=== PATIENT | female | born 1980 | race Two or more races ===

== ENCOUNTER 2017-07-02 20:22 | Emergency (ER) | payer BC ==
[2017-07-02] MEDS ORDERED: Acetaminophen TAB* 325 MG PO ONE (21:40)
[2017-07-02] MEDS ORDERED: NS 0.9% 1000 ML*IV.FLUID IV ONE (21:40)
[2017-07-02] MEDS ORDERED: Albuterol 2.5 MG/3 ML NEB.SOL* (0.083%) INH PRN (21:42)
[2017-07-02] MEDS ORDERED: Albuterol/Ipratropium NEB.SOL* Albuterol 2.5 MG/Ipratropium 0.5 MG 3 ML INH ONE (21:42)
[2017-07-02] MEDS ORDERED: Levofloxacin 750 MG IVPREMIX(* 750 MG/150 ML BAG IVPB ONE (21:42)
[2017-07-02 22:34] LABS: EGFR Non-African American 88.3 (>60)
[2017-07-02 22:37] LABS: INR 0.93 (0.77-1.02)
[2017-07-02 22:46] LABS: ABS Basophils 0 10^3/ul (0-0.2); ABS Eosinophils 0.1 10^3/ul (0-0.6); ABS Lymphocytes 2.1 10^3/ul (1.0-4.8); ABS Monocytes 0.4 10^3/ul (0-0.8); ABS Neutrophils 1.9 10^3/ul (1.5-7.7); ABS Nucleated RBC 0 10^3/ul; Hematocrit 40 % (35-47); Hemoglobin 13.7 g/dl (12.0-16.0); Lymphocyte % 46.4 % (25-47); Mean Corpuscular HGB Conc 34 g/dl (31-36); Mean Corpuscular Hemoglobin 33 pg (27-31); Mean Corpuscular Volume 96 fL (80-97); Mean Platelet Volume 7 um3 (7.4-10.4); Nucleated Red Blood Cells % 0; Platelet Count 92 10^3/ul (150-450); Red Blood Count 4.18 10^6/ul (4.0-5.4); Red Cell Distribution Width 14 % (10.5-15); White Blood Count 4.5 10^3/ul (3.5-10.8)
[2017-07-02] MEDS ORDERED: Ibuprofen TAB* 800 MG PO PRN (23:16)
--- NOTE | 2017-07-02 23:18 | ED ---
Niesha Kearney Rebecca, scribed for Omid Overton MD on 07/02/17 at 2258 . Shortness of Breath - HPI Summary HPI Summary: Pt is a 36 y/o F who presents to ED c/o wheezing and SOB for 2 days, gradually worsening since onset. Pt initially attributed sx to being around cats. Sx aggravated by nothing, alleviated by Albuterol and unchanged by Benadryl. Sx have improved since arriving in the ED. Additionally c/o myalgias and fatigue, beginning this morning, stating that she slept all afternoon. Notes rhinorrhea and cough. 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 No PMHx asthma. - History of Current Complaint Chief Complaint: EDShortnessOfBreath Time Seen by Provider: 07/02/17 21:43 Hx Obtained From: Patient Onset/Duration: Lasting Days - 2 days, Still Present Current Severity: Moderate - 5/10 Dyspnea At: Rest Aggrevating Factors: Nothing Alleviating Factors: Bronchodilators - Albuterol Associated Signs & Symptoms: Cough (Nonproductive), Wheezing - Allergy/Home Medications Allergies/Adverse Reactions: Allergies Allergy/AdvReac Type Severity Reaction Status Date / Time Chlorhexidine Allergy Rash And Verified 07/02/17 21:56 Itching Vancomycin Allergy See Comment Verified 07/02/17 21:56 PMH/Surg Hx/FS Hx/Imm Hx Endocrine/Hematology History: Reports: Other Endocrine/Hematological Disorders - Prediabetic Respiratory History: Denies: Hx Asthma - Cancer History Cancer Type, Location and Year: Leukemia - in remission since November 2016 Infectious Disease History: No Infectious Disease History: Denies: Traveled Outside the [place] in Last 30 Days - Family History Known Family History: Positive: Hypertension, Diabetes - Social History Alcohol Use: None Substance Use Type: Reports: None Smoking Status (MU): Never Smoked Tobacco Review of Systems Positive: Fatigue Positive: Nasal Discharge Positive: Shortness Of Breath, Cough, Other - Wheezing Positive: Myalgia All Other Systems Reviewed And Are Negative: Yes Physical Exam - Summary Physical Exam Summary: VITAL SIGNS: Reviewed. GENERAL: Patient is a well-developed and nourished female who is lying comfortable in the stretcher. Patient is not in any acute respiratory distress. HEAD AND FACE: No signs of trauma. No ecchymosis, hematomas or skull depressions. No sinus tenderness. EYES: PERRLA, EOMI x 2, No injected conjunctiva, no nystagmus. EARS: Hearing grossly intact. Ear canals and tympanic membranes are within normal limits. MOUTH: Oropharynx within normal limits. NECK: Supple, trachea is midline, no adenopathy, no JVD, no carotid bruit, no c- spine tenderness, neck with full ROM. CHEST: Symmetric, no tenderness at palpation LUNGS: Clear to auscultation bilaterally. No wheezing or crackles. CVS: Regular rate and rhythm, S1 and S2 present, no murmurs or gallops appreciated. ABDOMEN: Soft, non-tender. No signs of distention. No rebound no guarding, and no masses palpated. Bowel sounds are normal. EXTREMITIES: FROM in all major joints, no edema, no cyanosis or clubbing. NEURO: Alert and oriented x 3. No acute neurological deficits. Speech is normal and follows commands. SKIN: Dry and warm Triage Information Reviewed: Yes Vital Signs On Initial Exam: Initial Vitals Temp Pulse Resp BP Pulse Ox 102.3 F 113 32 125/84 98 07/02/17 20:32 07/02/17 20:32 07/02/17 20:32 07/02/17 20:32 07/02/17 20:32 Vital Signs Reviewed: Yes Diagnostics - Vital Signs Vital Signs Temp Pulse Resp BP Pulse Ox 07/02/17 20:32 102.3 F 113 32 125/84 98 - Laboratory Lab Results: Lab Results 07/02/17 07/02/17 07/02/17 Range/Units 21:50 21:50 21:50 WBC (3.5-10.8) 10^3/ul RBC (4.0-5.4) 10^6/ul Hgb (12.0-16.0) g/dl Hct (35-47) % MCV (80-97) fL MCH (27-31) pg MCHC (31-36) g/dl RDW (10.5-15) % Plt Count (150-450) 10^3/ul MPV (7.4-10.4) um3 Neut % (Auto) (38-83) % Lymph % (Auto) (25-47) % Clinton % (Auto) (1-9) % Eos % (Auto) (0-6) % Baso % (Auto) (0-2) % Absolute Neuts (auto) (1.5-7.7) 10^3/ul Absolute Lymphs (auto) (1.0-4.8) 10^3/ul Absolute Monos (auto) (0-0.8) 10^3/ul Absolute Eos (auto) (0-0.6) 10^3/ul Absolute Basos (auto) (0-0.2) 10^3/ul Absolute Nucleated RBC 10^3/ul Nucleated RBC % Hem Pathologist Commnt INR (Anticoag Therapy) 0.93 (0.77-1.02) APTT 34.6 (26.0-36.3) seconds Sodium 137 (133-145) mmol/L Potassium 3.8 (3.5-5.0) mmol/L Chloride 103 (101-111) mmol/L Carbon Dioxide 27 (22-32) mmol/L Anion Gap 7 (2-11) mmol/L BUN 8 (6-24) mg/dL Creatinine 0.74 (0.51-0.95) mg/dL Est GFR ( Amer) 113.6 (>60) Est GFR (Non-Af Amer) 88.3 (>60) BUN/Creatinine Ratio 10.8 (8-20) Glucose 88 (70-100) mg/dL Lactic Acid (0.5-2.0) mmol/L Calcium 10.5 H (8.6-10.3) mg/dL Total Bilirubin 0.40 (0.2-1.0) mg/dL AST 38 (13-39) U/L ALT 51 (7-52) U/L Alkaline Phosphatase 99 (34-104) U/L Troponin I 0.00 (<0.04) ng/mL C-Reactive Protein 22.43 H (< 5.00) mg/L B-Natriuretic Peptide 39 ( - 100) pg/mL Total Protein 8.7 (6.4-8.9) g/dL Albumin 5.0 (3.2-5.2) g/dL Globulin 3.7 (2-4) g/dL Albumin/Globulin Ratio 1.4 (1-3) Influenza A (Rapid) (Negative) Influenza B (Rapid) (Negative) 01/20/18 01/20/18 01/20/18 Range/Units 21:50 21:50 22:23 WBC 4.5 (3.5-10.8) 10^3/ul RBC 4.18 (4.0-5.4) 10^6/ul Hgb 13.7 (12.0-16.0) g/dl Hct 40 (35-47) % MCV 96 (80-97) fL MCH 33 H (27-31) pg MCHC 34 (31-36) g/dl RDW 14 (10.5-15) % Plt Count 92 L (150-450) 10^3/ul MPV 7 L (7.4-10.4) um3 Neut % (Auto) 42.2 (38-83) % Lymph % (Auto) 46.4 (25-47) % Clinton % (Auto) 8.1 (1-9) % Eos % (Auto) 3.0 (0-6) % Baso % (Auto) 0.3 (0-2) % Absolute Neuts (auto) 1.9 (1.5-7.7) 10^3/ul Absolute Lymphs (auto) 2.1 (1.0-4.8) 10^3/ul Absolute Monos (auto) 0.4 (0-0.8) 10^3/ul Absolute Eos (auto) 0.1 (0-0.6) 10^3/ul Absolute Basos (auto) 0 (0-0.2) 10^3/ul Absolute Nucleated RBC 0 10^3/ul Nucleated RBC % 0 Hem Pathologist Commnt Pending INR (Anticoag Therapy) (0.77-1.02) APTT (26.0-36.3) seconds Sodium (133-145) mmol/L Potassium (3.5-5.0) mmol/L Chloride (101-111) mmol/L Carbon Dioxide (22-32) mmol/L Anion Gap (2-11) mmol/L BUN (6-24) mg/dL Creatinine (0.51-0.95) mg/dL Est GFR ( Amer) (>60) Est GFR (Non-Af Amer) (>60) BUN/Creatinine Ratio (8-20) Glucose (70-100) mg/dL Lactic Acid 0.6 (0.5-2.0) mmol/L Calcium (8.6-10.3) mg/dL Total Bilirubin (0.2-1.0) mg/dL AST (13-39) U/L ALT (7-52) U/L Alkaline Phosphatase (34-104) U/L Troponin I (<0.04) ng/mL C-Reactive Protein (< 5.00) mg/L B-Natriuretic Peptide ( - 100) pg/mL Total Protein (6.4-8.9) g/dL Albumin (3.2-5.2) g/dL Globulin (2-4) g/dL Albumin/Globulin Ratio (1-3) Influenza A (Rapid) Negative (Negative) Influenza B (Rapid) Negative (Negative) Result Diagrams: 07/02/17 21:50 07/02/17 21:50 Lab Statement: Any lab studies that have been ordered have been reviewed, and results considered in the medical decision making process. - Radiology CXR Xray Interpretation: No Acute Changes - No acute process. Radiology Interpretation Completed By: ED Physician Re-Evaluation - Re-Evaluation First Eval Re-Evaluation Time: 23:15 Comment: Pt is doing well. Course/Dx - Course Assessment/Plan: Pt is a 36 y/o F who presents to ED c/o wheezing and SOB for 2 days, gradually worsening since onset. Sx alleviated by Albuterol and unchanged by Benadryl. Sx have improved since arriving in the ED. Additionally c/o myalgias and fatigue, beginning this morning. Notes rhinorrhea and cough. 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 No PMHx asthma. CXR reveals no acute process. Influenza A and B are negative. Pt will be D/C to home with Dx of viral syndrome with Rx for Albuterol inhaler and Motrin. She understands and agrees. Allergies noted. - Diagnoses Provider Diagnoses: Viral syndrome Discharge - Discharge Plan Condition: Stable Disposition: HOME Prescriptions: Albuterol HFA INHALER* [Ventolin HFA Inhaler*] 2 puff INH Q6H PRN #1 mdi PRN Reason: Shortness Of Breath Ibuprofen TAB* [Motrin TAB* 800 MG] 800 mg PO ONCE PRN #30 tab PRN Reason: Fever/Pain Patient Education Materials: Viral Syndrome (ED) Referrals: Dariela Solis MD [Primary Care Provider] - Additional Instructions: RETURN TO EMERGENCY DEPARTMENT FOR ANY NEW OR WORSENING SYMPTOMS The documentation as recorded by the Niesha jimenez Rebecca accurately reflects the service I personally performed and the decisions made by me, Omid Overton MD.
[2017-07-02] MEDS ORDERED: Albuterol HFA INHALER* 8 gm MDI INH SCH (23:45)
[2017-07-03 01:39] VITALS: BP 123/73
--- NOTE | 2017-07-03 07:59 | RAD ---
HISTORY: Shortness of breath COMPARISONS: None VIEWS: 1: frontal portable view of the chest at 10:58 PM FINDINGS: LINES AND TUBES: None. CARDIOMEDIASTINAL SILHOUETTE: The cardiomediastinal silhouette is normal for portable technique. PLEURA: The costophrenic angles are sharp. No pleural abnormalities are noted. LUNG PARENCHYMA: The lungs are clear. ABDOMEN: The upper abdomen is clear. There is no subphrenic gas. BONES AND SOFT TISSUES: No bone or soft tissue abnormalities are noted. IMPRESSION: NO ACTIVE CARDIOPULMONARY DISEASE.
== END 2017-07-03 00:20 | disposition home or self-care (01) ==
LOC: ED 20:22
DX: B34.9 Viral infection, unspecified (principal); Z88.3 Allergy status to other anti-infective agents; Z88.8 Allergy status to other drugs, medicaments and biological substances
CPT/HCPCS: 36415; 71045; 80053; 83605; 83880; 84484; 85025; 85060; 85610; 85730; 86140; 87040; 87502; 96361; 96374; 99284; A9270-GY